=== PATIENT | male | born 2005 | race African-American/Black ===

== ENCOUNTER 2023-07-13 16:09 | Emergency (ER) | payer BC ==
[~2023-07-13] VITALS: Ht 190.5 cm; Wt 106.6 kg
[2023-07-13 16:17] VITALS: BP 143/60; PULSE 63; RESP 16; TEMP 97; O2SAT 98
[2023-07-13] MEDS: IBUPROFEN 600 MG TAB PO ONE (16:57)
[2023-07-13] MEDS ORDERED: IBUP-2213 PO (17:25)
[2023-07-13 17:43] VITALS: BP 143/60; PULSE 63; RESP 16; TEMP 97; O2SAT 98
== END 2023-07-13 17:46 | disposition home or self-care (01) ==
LOC: MED 16:09
DX: S00.11XA Contusion of right eyelid and periocular area, initial encounter (principal); Z79.899 Other long term (current) drug therapy; X58.XXXA Exposure to other specified factors, initial encounter; Y93.89 Activity, other specified; Y92.89 Other specified places as the place of occurrence of the external cause; Y99.8 Other external cause status
CPT/HCPCS: 70486; 99284